=== PATIENT | female | born 1945 ===

== ENCOUNTER → 2024-10-17 | Outpatient (CLI) | payer MEDICARE, SELFPAY | END | disposition home or self-care (01) | PROVIDERS: PCP Nurse Practitioner Family; Referring Provider Nurse Practitioner Family; Visit Provider Student in an Organized Health Care Education/Training Program | DX: S31.105A Unspecified open wound of abdominal wall, periumbilic region without penetration into peritoneal cavity, initial encounter (principal); X58.XXXA Exposure to other specified factors, initial encounter; L02.211 Cutaneous abscess of abdominal wall; K74.60 Unspecified cirrhosis of liver; I10 Essential (primary) hypertension | CPT/HCPCS: 99204; A9270; G0463 ==